=== PATIENT | male | born 1960 | race Hispanic/Latino ===

== ENCOUNTER 2017-03-08 10:20 | Inpatient (IN) ==
[2017-03-08 10:51] LABS: MANUAL DIFF NEEDED? NO
--- NOTE | 2017-03-08 10:52 | Diag Imaging Result Doc PS360 ---
EXAM: CHEST-PORTABLE HISTORY: AMS TECHNIQUE: Portable AP upright COMPARISON: 06/17/2016 FINDINGS: The lungs are well expanded. Heart is not enlarged. The vessels are not distended. No pneumonia. No pleural effusions identified. IMPRESSION: Negative chest. Electronically signed by Jason iHguera 03/08/2017 10:50 AM
[2017-03-08 10:59] LABS: BASO% 0.4 % (0.0-0.8); EOS# 0.03 X1000 (0.0-0.7); EOS% 1.1 % (0.0-10.0); HEMATOCRIT 38.4 % (42.0-52.0); HEMOGLOBIN 13.2 g/dL (14.0-18.0); LYMPH# 0.86 X1000 (1.2-3.4); LYMPH% 30.8 % (20.5-51.1); MCH 28.4 PG (27-31); MCHC 34.4 g/dL (33-37); MCV 82.6 FL (81-99); MONO# 0.33 X1000 (0.11-0.59); MONO% 11.8 % (1.7-9.3); MPV 11.1 FL (7.4-10.4); NEUT% 55.9 % (42.2-75.2); PLT 90 X1000 (130-400); RBC 4.65 XMIL (4.7-6.1)
[2017-03-08 11:02] LABS: INR 1.09; PROTIME 11.5 Seconds (9.2-11.7); PTT 33.4 Seconds (22.0-36.0)
[2017-03-08 11:13] LABS: AGAP 12; ALBUMIN 3.6 g/dL (3.5-5.0); ALKALINE PHOSPHATASE 93 U/L (32-122); BUN 12 mg/dL (8-22); CALCIUM 8.9 mg/dL (8.8-10.2); CHLORIDE 103 mmol/L (98-107); CK PROFILE 149 U/L (24-204); COSMO 276; GOT 31 U/L (10-34); GPT 12 U/L (10-44); POTASSIUM 4.1 mmol/L (3.5-5.1); SODIUM 138 mmol/L (136-145); TCO2 23 mmol/L (25-35); TOTAL BILIRUBIN 0.85 mg/dL (0.20-1.00); TOTAL PROTEIN 7.1 g/dL (6.3-8.3)
[2017-03-08 11:28] LABS: URINE CULTURE NEEDED? NO; URINE MICRO REVIEW NEEDED? NO; URINE SOURCE CLEAN CATCH
[2017-03-08 11:37] LABS: BILIRUBIN URINE NEGATIVE (NEGATIVE); BLOOD URINE NEGATIVE (NEGATIVE); COLOR YELLOW; GLUCOSE URINE NEGATIVE (NEGATIVE); LEUKOCYTES URINE NEGATIVE (NEGATIVE); NITRITE URINE NEGATIVE (NEGATIVE); PH URINE 5.5; PROTEIN URINE TRACE mg/dL (NEGATIVE); SP GRAVITY URINE 1.021; TURBIDITY URINE CLEAR (CLEAR); UROBILINOGEN URINE NORMAL (NORMAL)
[2017-03-08 11:38] LABS: UR EPITHELIAL CELLS <10 /HPF (<10); URINE BACTERIA NEGATIVE /HPF; URINE RBC <10 /HPF (<10); URINE WBC <10 /HPF (<10)
--- NOTE | 2017-03-08 11:44 | EKG Report ---
Test Performed on : 03/08/2017 11:10:35 AM Test Reason : AMS Blood Pressure : / mmHG Vent. Rate : 088 BPM Atrial Rate : 088 BPM P-R Int : 166 ms QRS Dur : 086 ms QT Int : 378 ms P-R-T Axes : 022 -05 -17 degrees QTc Int : 457 ms Normal sinus rhythm. Nonspecific T wave abnormality Abnormal ECG When compared with ECG of 01-SEP-2016 07:09, QT has shortened Unconfirmed Result
[2017-03-08 11:45] LABS: UR AMPHETAMINES QUAL NONE DETECTED (NONE DETECT); UR BARBITUATES QUAL NONE DETECTED (NONE DETECT); UR BENZODIAZEPIN QUAL NONE DETECTED (NONE DETECT); UR CANNABINOIDS QUAL NONE DETECTED (NONE DETECT); UR COCAINE QUAL NONE DETECTED (NONE DETECT); UR METHADONE QUAL NONE DETECTED (NONE DETECT); UR OPIATES QUAL NONE DETECTED (NONE DETECT); UR OXYCODONE QUAL NONE DETECTED (NONE DETECT); UR PCP QUAL NONE DETECTED (NONE DETECT)
--- NOTE | 2017-03-08 11:55 | Diag Imaging Result Doc PS360 ---
EXAM: HEAD W/O CONTRAST HISTORY: AMS TECHNIQUE: CT of the head without contrast COMMENT: there is some hyperostosis of the calvarium. There is no evidence of mass effect, bleed, hydrocephalus or abnormal extra-axial fluid collection. There has been no significant change in the appearance of the brain since 08/31/2016. There is mucosal thickening in the left maxillary sinus which was not present at the time the previous study. IMPRESSION: Left maxillary sinusitis. No evidence of acute intracranial disease. Electronically signed by Jarrell Maria 03/08/2017 11:53 AM
[2017-03-08] MEDS ORDERED: KEPPRA PO ONE (12:19)
[2017-03-08] MEDS ORDERED: VALIUM ONE (12:45)
[2017-03-08] MEDS ORDERED: VALIUM IV ONE (12:51)
--- NOTE | 2017-03-08 13:05 | PROVIDER DOCUMENTATION ---
This chart was entered by Masood Bowser Scribe, acting as scribe for Sandy Eng MD. HPI-Syncope/Dizziness - General Stated Complaint: SYNCOPE, UNRESPONSIVE Time Seen by Provider: 03/08/17 10:25 Source: patient, EMS Allergies/Adverse Reactions: Patient Allergies Allergy/AdvReac Type Severity Reaction Status Date / Time No Known Allergies Allergy Verified 08/31/16 13:01 Home Medications: Home Medication List Medication Instructions Recorded Confirmed Last Taken Type Levetiracetam [Keppra] 750 mg PO BID 09/14/16 03/08/17 03/08/17 07:00 History YES - History of Present Illness-Syncope/Dizzy Nature of Presenting Problem: 56 yo M presents to the ER via EMS with complaint of syncopal episode prior to arrival. EMS states he passed out while at work. PT has as hx of seizures and syncopal episodes. Ptwas confused when he woke up but was A&O x 2. The episode was not witnessed. Denies SOB, CP, headache, and dizziness. PT states his last seizure was 1 year ago. Prior Episodes: reports: single episode today, recent history Onset/Duration: reports: just prior to arrival Timing: reports: gone now Loss of Consciousness: unsure Location of injury. (If syncope resulted in an injury.): reports: none Current Symptoms: reports: none/feels normal Review of Systems - Adult - REVIEW OF SYSTEMS - ADULT Constitutional: denies: chills, fever Cardiovascular: denies: chest pain, palpitations Respiratory: denies: cough, shortness of breath Gastrointestinal: denies: abdominal pain, nausea, vomiting Neurological: reports: see HPI, syncope All Other Systems: Reviewed and Negative Past History - Adult - PAST MEDICAL HISTORY-ADULT Review of Records: reports: Old Records Reviewed, Nursing Assessment Review, Medications Reviewed, Social history reviewed & non-contributory. Major Childhood Illnesses: reports: denies history Cardiovascular: reports: denies history Respiratory: reports: denies history Gastrointestinal: reports: denies history Obstetrical/Gynecological: reports: denies history Genitourinary: reports: denies history Musculoskeletal: reports: arthritis Neurological: reports: denies history Psychiatric: reports: denies history Endocrine/Immune: reports: denies history Other Conditions: reports: denies history - PRIOR SURGERIES/PROCEDURES Surgical/Procedure History: reports: appendectomy, hernia repair, other (Knee/ Nose Scope) - PRIOR HOSPITALIZATIONS Prior Hospitalizations: reports: none - IMMUNIZATION STATUS Childhood Immunizations: See Nurse Assessment Flu Vaccine: See Nurse Assessment - FAMILY HISTORY Family History: reviewed, not pertinent Physical Exam-General - PHYSICAL EXAM-ADULT Initial Vital Signs Reviewed: Yes - CONSTITUTIONAL General Appearance: alert, no apparent distress, lethargic, slow to respond - HEAD, EARS, NOSE, MOUTH & THROAT HENMT: normocephalic/atraumatic, moist mucous membranes - RESPIRATORY Respiratory: chest non-tender, lungs clear, normal breath sounds - CARDIOVASCULAR Cardiovascular: normal peripheral pulses, regular rate, rhythm - GASTROINTESTINAL (ABDOMEN) Abdominal Exam: normal bowel sounds, non tender, soft - MUSCULOSKELETAL Extremity: normal range of motion, non-tender, normal gait - SKIN Integumentary: normal color, normal turgor - NEUROLOGIC Neurologic: sleep technician II-XII nml as tested, grossly normal, no motor/sensory deficits - PSYCHIATRIC Psych/Mental Status: normal thought content Progress - PLAN OF CARE/RESULTS Progress/Plan/Lab Results: Vital Signs - 8 hr 03/08/17 10:41 Temperature 98.0 F Pulse Rate 100 H Respiratory Rate 18 Blood Pressure 154/105 O2 Sat by Pulse Oximetry 95 Laboratory Results - last 24 hr 03/08/17 03/08/17 03/08/17 10:40 10:40 10:40 WBC 2.79 L RBC 4.65 L Hgb 13.2 L Hct 38.4 L MCV 82.6 MCH 28.4 MCHC 34.4 RDW Std Deviation 15.9 H Plt Count 90 L MPV 11.1 H Immature Gran % (Auto) 0.0 Neut % (Auto) 55.9 Lymph % (Auto) 30.8 Crane % (Auto) 11.8 H Eos % (Auto) 1.1 Baso % (Auto) 0.4 Immature Gran # (Auto) 0.00 Neut # (Auto) 1.56 Lymph # (Auto) 0.86 L Crane # (Auto) 0.33 Eos # (Auto) 0.03 Baso # (Auto) 0.01 PT INR PTT (Actin FS) Sodium 138 Potassium 4.1 Chloride 103 Carbon Dioxide 23 L Anion Gap 12 BUN 12 Creatinine 0.8 Estimated GFR/1.73 m2 > 60 BUN/Creatinine Ratio 15 Glucose 111 H Calculated Osmolality 276 Calcium 8.9 Total Bilirubin 0.85 AST 31 ALT 12 Alkaline Phosphatase 93 Creatine Kinase 149 Troponin T Total Protein 7.1 Albumin 3.6 Globulin 3.5 Albumin/Globulin Ratio 1.0 Plasma Lactate Urine Source Urine Color Urine Turbidity Urine pH Ur Specific [place] Urine Protein Ur Glucose (Stick) Ur Ketones (Stick) Urine Blood Urine Nitrite Urine Bilirubin Urobilinogen Dipstick Urine Leukocytes Urine WBC (Auto) Urine RBC (Auto) U Epithel Cells (Auto) Urine Bacteria (Auto) Urine Opiates Screen Ur Oxycodone Screen Ur Methadone, Qual Ur Barbiturates Screen Ur Phencyclidine Scrn Ur Amphetamines Screen U Benzodiazepines Scrn Urine Cocaine Screen U Cannabinoids Screen Plasma/Serum Ethyl Alc 03/08/17 03/08/17 03/08/17 10:40 10:40 11:15 WBC RBC Hgb Hct MCV MCH MCHC RDW Std Deviation Plt Count MPV Immature Gran % (Auto) Neut % (Auto) Lymph % (Auto) Crane % (Auto) Eos % (Auto) Baso % (Auto) Immature Gran # (Auto) Neut # (Auto) Lymph # (Auto) Crane # (Auto) Eos # (Auto) Baso # (Auto) PT 11.5 INR 1.09 PTT (Actin FS) 33.4 Sodium Potassium Chloride Carbon Dioxide Anion Gap BUN Creatinine Estimated GFR/1.73 m2 BUN/Creatinine Ratio Glucose Calculated Osmolality Calcium Total Bilirubin AST ALT Alkaline Phosphatase Creatine Kinase Troponin T < 0.010 Total Protein Albumin Globulin Albumin/Globulin Ratio Plasma Lactate Urine Source CLEAN CATCH Urine Color YELLOW Urine Turbidity CLEAR Urine pH 5.5 Ur Specific [place] 1.021 Urine Protein TRACE A Ur Glucose (Stick) NEGATIVE Ur Ketones (Stick) NEGATIVE Urine Blood NEGATIVE Urine Nitrite NEGATIVE Urine Bilirubin NEGATIVE Urobilinogen Dipstick NORMAL Urine Leukocytes NEGATIVE Urine WBC (Auto) <10 Urine RBC (Auto) <10 U Epithel Cells (Auto) <10 Urine Bacteria (Auto) NEGATIVE Urine Opiates Screen Ur Oxycodone Screen Ur Methadone, Qual Ur Barbiturates Screen Ur Phencyclidine Scrn Ur Amphetamines Screen U Benzodiazepines Scrn Urine Cocaine Screen U Cannabinoids Screen Plasma/Serum Ethyl Alc 03/08/17 03/08/17 11:15 11:26 WBC RBC Hgb Hct MCV MCH MCHC RDW Std Deviation Plt Count MPV Immature Gran % (Auto) Neut % (Auto) Lymph % (Auto) Crane % (Auto) Eos % (Auto) Baso % (Auto) Immature Gran # (Auto) Neut # (Auto) Lymph # (Auto) Crane # (Auto) Eos # (Auto) Baso # (Auto) PT INR PTT (Actin FS) Sodium Potassium Chloride Carbon Dioxide Anion Gap BUN Creatinine Estimated GFR/1.73 m2 BUN/Creatinine Ratio Glucose Calculated Osmolality Calcium Total Bilirubin AST ALT Alkaline Phosphatase Creatine Kinase Troponin T Total Protein Albumin Globulin Albumin/Globulin Ratio Plasma Lactate 2.0 Urine Source Urine Color Urine Turbidity Urine pH Ur Specific [place] Urine Protein Ur Glucose (Stick) Ur Ketones (Stick) Urine Blood Urine Nitrite Urine Bilirubin Urobilinogen Dipstick Urine Leukocytes Urine WBC (Auto) Urine RBC (Auto) U Epithel Cells (Auto) Urine Bacteria (Auto) Urine Opiates Screen NONE DETECTED Ur Oxycodone Screen NONE DETECTED Ur Methadone, Qual NONE DETECTED Ur Barbiturates Screen NONE DETECTED Ur Phencyclidine Scrn NONE DETECTED Ur Amphetamines Screen NONE DETECTED U Benzodiazepines Scrn NONE DETECTED Urine Cocaine Screen NONE DETECTED U Cannabinoids Screen NONE DETECTED Plasma/Serum Ethyl Alc Orders Category Date Time Status Cardiac Monitoring DIRECTED Care 03/08/17 10:33 Active Finger Stick Blood Sugar (ED) DIRECTED Care 03/08/17 10:33 Active Oxygen Therapy- ED Nursing DIRECTED Care 03/08/17 10:33 Active Saline Loc NOW Care 03/08/17 10:33 Active CHEST-PORTABLE [RAD] Stat Exams 03/08/17 10:33 Completed HEAD W/O CONTRAST [CT] Stat Exams 03/08/17 10:34 Completed ALCOHOL BLOOD Stat Lab 03/08/17 10:40 Completed CBC WITH ELECTRONIC DIFF [HEME] Stat Lab 03/08/17 10:40 Completed CK PROFILE [SP CHEM] Stat Lab 03/08/17 10:40 Completed COMPREHENSIVE METABOLIC PANEL [CHEM] Stat Lab 03/08/17 10:40 Completed KEPPRA [GLEZ] Stat Lab 03/08/17 12:19 Ordered LACTATE, PLASMA [CHEM] Stat Lab 03/08/17 11:26 Completed PROTIME WITH INR [COAG] Stat Lab 03/08/17 10:40 Completed PTT [COAG] Stat Lab 03/08/17 10:40 Completed TROPONIN T Stat Lab 03/08/17 10:40 Completed URINALYSIS W/POSS RFLX CULT-1 [URINALYSIS] Stat Lab 03/08/17 11:15 Completed URINE DRUG SCREEN Stat Lab 03/08/17 11:15 Completed Diazepam [Valium] Med 03/08/17 12:45 Discontinued 10 mg .ROUTE .STK-MED ONE Diazepam [Valium] Med 03/08/17 12:51 Discontinued 10 mg IV NOW ONE Levetiracetam [Keppra] Med 03/08/17 12:19 Discontinued 750 mg PO NOW ONE Pulse Oximetry Stat Oth 03/08/17 10:33 Active EKG [EKG] Stat Ther 03/08/17 10:33 Draft Result Diagrams: 03/08/17 10:40 03/08/17 10:40 - EKG 1 Time of EKG reading by physician:: 11:10 EKG Read and Signed by:: Sandy Eng EKG Interpretation (*Must complete 3 of following elements*): Abnormal Rate: 88 Rhythm: NSR QRS: normal UT Interval: normal Comments: nonspecific Twave abnormality - XRAY 1 XRAY Study: Chest Impression: See EMR Report - CT/MRI 1 CT Study: Head Impression: See EMR Report - CONSULTS/PCP/HOSPITALIST Notification #1 *Consult/PCP/Hospitalist*: Dr israel Time Discussed: 13:02 Consult Disposition: Admit Departure - Departure Date of Disposition Decision: 03/08/17 Time of Disposition Decision: 13:02 DIAGNOSIS: Seizure Syncope Qualifiers: Syncope type: unspecified Qualified Code(s): R55 - Syncope and collapse Altered mental status Qualifiers: Altered mental status type: unspecified Qualified Code(s): R41.82 - Altered mental status, unspecified Disposition: ADMITTED INPATIENT 09 Certified Medical Emergency: Emergent Condition: Fair Referrals and Follow-Ups: None,PCP [Primary Care Provider] - - Critical Care Note This patient required my direct & personal management of CC.: No Comments: A 56 y/o M who presented after syncopal episode, had another seizure episode in ED stabilized, after valium, confused, workup not impressive, will admit for further evalaution and observation This chart was documented by the indicated scribe, (Masood Bowser Scribe) and accurately reflects the services I performed and decisions made by me, Sandy Eng MD, as attested by the provider's signature.
[2017-03-08] MEDS ORDERED: ROCEPHIN 1 GM/NS 1 GM/50 ML IVPB IV SCH (13:15)
[2017-03-08 18:35] LABS: IRON SATURATION 19 %; TIBC 335 ug/dL; TOTAL IRON 63 ug/dL (53-167); UNBOUND IRON 272 ug/dL (112-346)
[2017-03-08 18:47] LABS: FREE T4 0.71 ng/dL (0.93-1.70)
--- NOTE | 2017-03-08 20:47 | CONSULTATION ---
DATE OF CONSULTATION: 03/08/2017 HISTORY OF PRESENT ILLNESS: Mr. Albarran is 66 years old and it sounds like he has had a few more seizures. History from the patient is that after I saw him in the office a week ago today, he continued taking levetiracetam twice a day until he ran out 2 days ago. He did not take any levetiracetam yesterday or early this morning. He was discovered down at work, but no unwitnessed definite seizure-like behavior. He was brought to the emergency room and had a witnessed generalized tonic-clonic seizure here. He had a typical postictal state, which resolved. He received lorazepam. He has had a dose of levetiracetam here. Lab does not show anything that would be typically associated with seizure or encephalopathy. He has been afebrile. Initial blood pressure was 154/105 with a heart rate 100. There is mild anemia. Review of previous records shows admission 6 months ago after a similar episode. EEG showed generalized epileptiform discharge. He was started on levetiracetam 500 mg b.i.d., dose increased to 750 mg b.i.d. at discharge. He continued seizure free and was tolerating that regimen. I saw him in the office last week and increased his levetiracetam dose to 1000 mg b.i.d. EEG today again shows prominent frequent bursts of repetitive sharp wave discharges. I do not see anything definitely focal. NEUROLOGIC EXAMINATION: On exam, Mr. Albarran is awake, alert, attentive. Speech is slightly dysarthric. There is evidence that he bit his tongue. Gag is intact. Visual naylor are full. Strength is equal in the limbs. Limb tone is symmetric. There is no meningismus. I did not test his gait. IMPRESSION: Generalized seizure. I encouraged him to take his seizure medicine as directed. Further plans will depend on his clinical course over the next few hours or so, but I expect he will be stable and ready for discharge soon. I will plan to follow him in the office as before. Thanks for asking me to see Mr. Albarran. cc: MD MIRNA Jon III
[2017-03-08] MEDS: KEPPRA PO SCH (20:55)
--- NOTE | 2017-03-09 01:02 | HISTORY AND PHYSICAL ---
CHIEF COMPLAINT: Seizure. HISTORY OF PRESENT ILLNESS: Mr. Albarran is a 56-year-old male with a history of a fairly new diagnosis of seizures, diagnosed in August of last year. At that time, he came to our facility, had advanced imaging done, all of which was negative. Dr. Diehl saw the patient, and he was placed on Keppra. He comes back today after apparently another seizure while at work. There is nobody at the bedside to assist with history, thus history is obtained per chart review. Apparently, the patient was at work and had a witnessed seizure or syncopal episode, and 911 was called. It is unknown how long the episode lasted, but when the patient did wake up, he was quite confused. Currently, he seems to be postictal, but no focal deficits are noted on exam. His head CT does not show anything acute. His laboratory data is largely unremarkable. He is now going to be admitted for further treatment and evaluation. PAST MEDICAL HISTORY: 1. Seizure disorder, on Keppra. 2. Morbid obesity. 3. Chronic right lower extremity venous stasis. 4. Apparent history of alcohol dependence, in sustained remission. PAST SURGICAL HISTORY: Hernia repair, nose surgery. SOCIAL HISTORY: Patient lives alone. He has no children. He works at [employer]. He reports 2 drinks of beer a night. He denies tobacco or drug use. FAMILY HISTORY: Unknown. REVIEW OF SYSTEMS: Really unable to obtain. ALLERGIES: No known drug allergies. HOME MEDICATIONS: Keppra 750 mg b.i.d. PHYSICAL EXAMINATION: VITAL SIGNS: Blood pressure is 162/83, heart rate 65, respiratory rate is 18, O2 saturation 99% on room air. Temperature is 98.6 degrees. GENERAL: This is a morbidly obese male, lying in the hospital bed in no acute distress, but somewhat lethargic and possibly postictal. NEUROLOGIC: Again, the patient is slightly confused and lethargic, but he follows commands without focal deficits. He does have some generalized weakness. Cranial nerves 2-12 are grossly intact. HEENT: Head atraumatic and normocephalic. His pupils are equal, round, reactive to light. Oral mucosa is moist. Trachea is midline. No JVD or carotid bruits. CHEST: Clear to auscultation bilaterally. CARDIOVASCULAR: Regular rate and rhythm. S1-S2 is noted. No murmurs. GASTROINTESTINAL: Soft, nondistended, nontender. Bowel sounds are positive. EXTREMITIES: Right lower extremity with 1+ edema and venous stasis noted. Left lower extremity without edema, clubbing, or cyanosis. Pulses palpable bilaterally. DIAGNOSTIC DATA: Head CT is negative for acute process. Chest x-ray is negative. EKG shows normal sinus rhythm, with nonspecific T-wave abnormalities. WBC 2.79, hemoglobin 13.2, hematocrit 38.4, platelet count is 90. INR 1.09. Sodium 138, potassium 4.1, chloride 103, CO2 23, anion gap 12, BUN 12, creatinine 0.8, glucose 111, bilirubin 0.85. LFTs within normal limits. Troponin and CKs are negative. UA is negative. Toxicology is negative. ASSESSMENT AND PLAN: 1. Syncope versus seizure: Patient will be admitted to the floor with telemetry. We will trend his cardiac enzymes. Check an EEG, continue his Keppra, check a Keppra level, and consult with Dr. Diehl. We will continue to monitor his neuro status closely. 2. History of seizures: As above. We will add p.r.n. benzodiazepines for any breakthrough seizures. 3. Pancytopenia: Unclear as to the etiology here. We will check thyroid function, full iron studies, and trend CBC. Likely, secondary to previous history of alcohol dependence. That is unclear. We will order appropriate labs and diagnostics, and continue to follow. 4. DVT prophylaxis will be provided with SCDs. Further recommendations to follow. Dictated by SUMA Martinez for Jessica Dennis MD cc: SUMA Martinez MD
[2017-03-09 04:53] LABS: HEMATOCRIT 39.4 % (42.0-52.0); HEMOGLOBIN 13.4 g/dL (14.0-18.0); MCV 82.4 FL (81-99); MPV 10.9 FL (7.4-10.4); RBC 4.78 XMIL (4.7-6.1)
[2017-03-09 05:06] LABS: HEMOGLOBIN A1C 5.1 % (4.8-6.0)
[2017-03-09 05:18] LABS: AGAP 11; BUN 7 mg/dL (8-22); CHLORIDE 103 mmol/L (98-107); COSMO 279; HDL 54 mg/dL (35-55); LDL 84 mg/dL; POTASSIUM 3.8 mmol/L (3.5-5.1); SODIUM 141 mmol/L (136-145); TCO2 27 mmol/L (25-35); TRIGLYCERIDES 68 mg/dL (39-160); VLDL 14 mg/dL
[2017-03-09 06:16] LABS: CK INDEX 0.4 (0.0-2.5); CK-MB 2.37 ng/mL (0.0-5.0)
[2017-03-09 07:35] VITALS: BP 151/81
[2017-03-09 08:19] LABS: CK INDEX 0.6 (0.0-2.5); CK-MB 2.9 ng/mL (0.0-5.0)
[2017-03-09] MEDS: KEPPRA PO SCH (08:21)
[2017-03-09] MEDS ORDERED: TYLENOL PO PRN (08:34)
--- NOTE | 2017-03-09 08:59 | PROGRESS NOTE ---
DATE: 03/09/2017 Mr. Albarran is awake, alert, attentive, appropriate, oriented. He reports no further seizure episodes since I saw him in the emergency room yesterday. Lab shows elevated CK consistent with recent seizure. Nothing else remarkable on the chemistry profile. His toxicology was all negative. He continues levetiracetam 750 mg p.o. b.i.d. I will make that 1000 mg b.i.d., as we had planned with office visit last week. I do not have any urgent suggestion from neurologic standpoint. From my standpoint, Mr. Albarran may be discharged when medically ready. Thanks for asking me to see him here. cc: MD MIRNA Jon III
[2017-03-09] MEDS ORDERED: KEPPRA XR PO SCH (09:00)
--- NOTE | 2017-03-09 14:52 | DISCHARGE SUMMARY ---
ADMISSION DATE: 03/08/2017 DISCHARGE DATE: 03/09/2017 CONSULTATIONS: Dr. Bjorn Diehl with Neurology. PERTINENT PROCEDURES: 1. Chest x-ray was negative. 2. Head CT showed left maxillary sinusitis. No evidence of acute intracranial disease. DISCHARGE DIAGNOSES: 1. Seizures disorder 2. Pancytopenia 3. Alcohol abuse in the past. HOSPITAL COURSE: Mr. Albarran is a 66-year-old male, known to our service for seizures and pancytopenia. The patient had recently seen Dr. Diehl in his office a week ago. He continue taking his Keppra twice a day until he ran out 2 days prior to his admission. He was discovered down at work but no witnessed definite seizure-like behavior. He was brought to the ED room where he did have witnessed generalized tonic-clonic seizure in the ED. He did have a typical postictal state which resolved. He did receive Ativan as well as a dose of Keppra. His CKs were consistent with seizure activity. The patient has been seizure-free since his episodes in the ED. He is encouraged to take his seizure medicine as directed as well as increase to 1000 b.i.d. from 500 b.i.d. He is now awake, alert, attentive, appropriate and he has been cleared for discharge by Neurology. Vital signs: Temperature is 98.2 degrees, heart rate 63, respirations 20, blood pressure 151/81, O2 is 99% on room air. DISCHARGE DIET: Healthy heart. DISCHARGE MEDICATIONS: Keppra 1000 mg p.o. b.i.d. FOLLOWUP: Mr. Albarran is being discharged home with self care. He will follow up with Dr. Diehl in 2 weeks. He will need to take all his seizure medications as prescribed. The patient can return to the ED for any worsening of symptoms. Dictated by SUMA Pederson for Jessica Dennis MD cc: Jessica Dennis MD [facility]
[2017-03-09] MEDS ORDERED: KEPPRA PO SCH (21:00)
--- NOTE | 2017-03-15 21:17 | EEG REPORT ---
DATE: 03/08/2017 REFERRING PHYSICIAN: Dr. Dennis. EEG #: [id number]. PATIENT APPOINTMENT COORDINATOR: Radha Montelongo. BACKGROUND INFORMATION: A digitally recorded EEG is obtained with one additional channel for EKG. HISTORY OF PRESENT ILLNESS: This is a 56-year-old male with a history of seizures the last one approximately 1 year ago. He had an unwitnessed syncopal event prior to arrival. Nurse states he appeared postictal upon arrival to ED. Had an episode of tonic clonic activity in the ED. An EEG is ordered to detect evidence of possible seizures. MEDICATION LIST: Keppra, diazepam. EEG FINDINGS: A moderately well-formed posterior dominant 9 hertz alpha rhythm is noted in the occipital regions. The background consists of mixed alpha and beta range frequencies. No focal slowing is seen. There are frequent 1-6 second bursts of atypical, generalized repetitive sharps, spikes, sharp wave and spike wave complexes noted throughout the study. There is no definite seizure activity. Hyperventilation and photic stimulation were not performed. No definite drowsiness patterns are noted. Stage II sleep is not seen. The EKG reveals regular R-R interval. IMPRESSION AND CLINICAL CORRELATION: This is an abnormal routine EEG due to frequent bursts of atypical epileptiform discharges noted above. This is consistent with a generalized epilepsy. Clinical correlation is advised. cc: MD Jessica Fisher MD [facility]
== END 2017-03-09 12:22 | disposition home or self-care (01) ==
LOC: SUATTDRO → ED 10:20 → 4N 14:25
PROVIDERS: ATTEND Internal Medicine

== ENCOUNTER 2017-04-19 03:53 | Inpatient (IN) ==
[2017-04-14 09:04] LABS: URINE MICRO REVIEW NEEDED? NO; URINE SOURCE CLEAN CATCH
[2017-04-14 09:11] LABS: MANUAL DIFF NEEDED? NO
[2017-04-14 09:36] LABS: BILIRUBIN URINE NEGATIVE (NEGATIVE); BLOOD URINE NEGATIVE (NEGATIVE); COLOR YELLOW; GLUCOSE URINE NEGATIVE (NEGATIVE); LEUKOCYTES URINE NEGATIVE (NEGATIVE); NITRITE URINE NEGATIVE (NEGATIVE); PROTEIN URINE TRACE mg/dL (NEGATIVE); SP GRAVITY URINE 1.025; TURBIDITY URINE CLEAR (CLEAR); UROBILINOGEN URINE NORMAL (NORMAL)
--- NOTE | 2017-04-14 09:38 | EKG Report ---
Test Performed on : 04/14/2017 08:51:26 AM Test Reason : PAT Blood Pressure : / mmHG Vent. Rate : 072 BPM Atrial Rate : 072 BPM P-R Int : 152 ms QRS Dur : 084 ms QT Int : 412 ms P-R-T Axes : 029 017 -08 degrees QTc Int : 451 ms Normal sinus rhythm. Normal ECG When compared with ECG of 08-MAR-2017 11:10, Nonspecific T wave abnormality, improved in Anterior leads Confirmed by Ulises Urrutia MD ([id number]) on 04/14/2017 12:49:44 PM
[2017-04-14 09:39] LABS: UR EPITHELIAL CELLS <10 /HPF (<10); URINE BACTERIA NEGATIVE /HPF; URINE RBC <10 /HPF (<10); URINE WBC <10 /HPF (<10)
[2017-04-14 09:46] LABS: BASO% 0.3 % (0.0-0.8); EOS# 0.09 X1000 (0.0-0.7); EOS% 2.7 % (0.0-10.0); HEMATOCRIT 43.2 % (42.0-52.0); HEMOGLOBIN 14.7 g/dL (14.0-18.0); INR 1.09; LYMPH# 1.15 X1000 (1.2-3.4); LYMPH% 35.1 % (20.5-51.1); MCH 29.2 PG (27-31); MCV 85.7 FL (81-99); MONO# 0.38 X1000 (0.11-0.59); MONO% 11.6 % (1.7-9.3); MPV 11.2 FL (7.4-10.4); NEUT% 50.3 % (42.2-75.2); PLT 98 X1000 (130-400); PROTIME 11.5 Seconds (9.2-11.7); PTT 36.6 Seconds (22.0-36.0); RBC 5.04 XMIL (4.7-6.1)
[2017-04-14 09:58] LABS: AGAP 13; BUN 14 mg/dL (8-22); CALCIUM 8.8 mg/dL (8.8-10.2); CHLORIDE 104 mmol/L (98-107); COSMO 284; POTASSIUM 4.6 mmol/L (3.5-5.1); SODIUM 142 mmol/L (136-145); TCO2 25 mmol/L (25-35)
[2017-04-19] MEDS ORDERED: LR 1,000 ML ONE (08:47)
[2017-04-19] MEDS ORDERED: PEPCID ONE (08:47)
[2017-04-19] MEDS ORDERED: REGLAN ONE (08:47)
[2017-04-19] MEDS ORDERED: COLACE ONE (08:48)
[2017-04-19] MEDS ORDERED: KEFZOL 2 GM/D5W 2 GM/50 ML IVPB ONE (08:48)
[2017-04-19] MEDS ORDERED: LYRICA ONE (08:49)
[2017-04-19] MEDS ORDERED: CELEBREX ONE (08:49)
[2017-04-19] MEDS ORDERED: DIPRIVAN 1% 500 MG/50 ML BOTTLE ONE (10:45)
[2017-04-19] MEDS ORDERED: TORADOL ONE (10:49)
[2017-04-19] MEDS ORDERED: VANCOMYCIN ONE (10:49)
[2017-04-19] MEDS ORDERED: SENSORCAINE 0.25%/EPI 1:200,000 ONE (10:49)
[2017-04-19] MEDS ORDERED: CYKLOKAPRON 1,000 MG/NS 1,000 MG/100 ML IVPB ONE ×2 (10:49→10:52)
[2017-04-19] MEDS ORDERED: DURAMORPH ONE (10:49)
[2017-04-19] MEDS ORDERED: SODIUM CHLORIDE 0.9% ONE (10:49)
[2017-04-19] MEDS ORDERED: EXPAREL 1.3% ONE (10:50)
[2017-04-19] MEDS ORDERED: NEOSPORIN G.U. IRRIGANT ONE (10:50)
[2017-04-19] MEDS ORDERED: FENTANYL ONE (11:33)
[2017-04-19] MEDS ORDERED: ROBINUL ONE (11:57)
[2017-04-19] MEDS ORDERED: DECADRON ONE (12:18)
[2017-04-19] MEDS ORDERED: ZOFRAN ONE (12:18)
[2017-04-19] MEDS ORDERED: OFIRMEV 1000 MG/ISOTONIC SOLN 1,000 MG/100 ML BOTTLE ONE (12:18)
[2017-04-19] MEDS ORDERED: DIPRIVAN 1% ONE ×2 (12:24→13:03)
[2017-04-19 12:33] LABS: URINE MICRO REVIEW NEEDED? NO; URINE SOURCE CATH
[2017-04-19 12:47] LABS: BILIRUBIN URINE NEGATIVE (NEGATIVE); BLOOD URINE NEGATIVE (NEGATIVE); COLOR YELLOW; GLUCOSE URINE NEGATIVE (NEGATIVE); LEUKOCYTES URINE NEGATIVE (NEGATIVE); NITRITE URINE NEGATIVE (NEGATIVE); PROTEIN URINE TRACE mg/dL (NEGATIVE); SP GRAVITY URINE 1.027; TURBIDITY URINE CLEAR (CLEAR); UROBILINOGEN URINE NORMAL (NORMAL)
[2017-04-19 12:49] LABS: UR EPITHELIAL CELLS <10 /HPF (<10); URINE BACTERIA NEGATIVE /HPF; URINE RBC <10 /HPF (<10); URINE WBC <10 /HPF (<10)
[2017-04-19] MEDS ORDERED: NS 2,000 ML ONE (13:58)
[2017-04-19] MEDS ORDERED: ZOFRAN IV PRN (14:45)
[2017-04-19] MEDS ORDERED: MORPHINE IV PRN (14:45)
[2017-04-19] MEDS ORDERED: AMBIEN PO PRN (14:45)
[2017-04-19] MEDS: TYLENOL PO SCH ×2 (16:47→20:59)
[2017-04-19] MEDS: ULTRAM PO SCH ×2 (16:48→21:00)
--- NOTE | 2017-04-19 17:02 | OPERATIVE NOTE ---
PROCEDURE DATE: 04/19/2017 PREOPERATIVE DIAGNOSIS: Left knee degenerative joint disease. POSTOPERATIVE DIAGNOSIS: Left knee degenerative joint disease. PROCEDURE: Left total knee arthroplasty using a [employer] size 10 femoral component, size 9 tibial base plate, a 16 mm articular insert, and a 38 mm patellar component. ANESTHESIA: Spinal. SURGEON: Dr. Muller. BRAIDING MACHINE TENDER: Fabiola Gary PA-C who was present throughout the case and was critical for preparing the bone ends for the implant of the total knee arthroplasty, assisting with implanting the total knee arthroplasty including cement removal and fascia and wound closure. SECOND BRAIDING MACHINE TENDER: Jez Gresham RN. COMPLICATIONS: None. BLOOD LOSS: Minimal. DRAINS: Hemovac x1. DESCRIPTION OF PROCEDURE: The patient brought to operative suite and placed in supine position. After successful administration of spinal anesthesia, a well-padded tourniquet was placed on left proximal thigh. The left lower extremity was prepped and draped in usual sterile fashion. A longitudinal incision was made beginning superior pole patella extended distally tibia tuberosity, dissected sharply through the skin and then full-thickness skin flaps were elevated medially and laterally. A medial arthrotomy was made with vastus snip. The medial capsule was elevated off medial tibial plateau. Prepatellar fat pad, ACL, PCL, medial meniscus, lateral meniscus were excised. A drill was entered in the center of distal femur. Intramedullary guide was placed. Distal cutting block was pinned in place distal cut made with oscillating saw. The femur was sized to a size 10, a size 10 guide was pinned in place and then the anterior cuts, chamfer cuts and posterior condylar cuts were made with the oscillating saw. Marginal osteophytes removed with rongeur. Box cutting block was pinned in place. Box cut was made with box osteotome and oscillating saw. Posterior condyle osteophytes removed with curved osteotome and rongeur. Attention was then directed to tibia. A drill was entered in the center of the tibia. Intramedullary guide was placed. Alignment was checked with drop maryam referencing off the anterior cortex of tibia and the second ray of the foot and taking 4 mm off the low side the tibia which in this case was medially. The tibial cutting block was pinned in place. The articular surface tibial plateau was removed with oscillating saw. The sclerotic bone medially was drilled with a pin and then osteophytes medially were removed with a rongeur. Was found to be tight medially in flexion and extension and therefore a medial release was performed. Once this was completed, was balanced in flexion and extension at 16 mm. The tibia sized to a size 9, a size 9 guide was used for the fin punch. The tibial trial, femoral trial and 60 mm articular insert placed, taken through range of motion, found to have excellent alignment, balancing, range of motion. Attention then directed the patella, 9 mm of articular surface patella removed with oscillating saw. Patella sized to size 38. A size 38 guide was used to drill peg holes. The lateral facet was chamfered 30-45 degrees. Patella trial was placed, taken through range of motion, found to have excellent patella tracking. All trials were then removed. The knee was copiously irrigated and dried being certain all bone debris removed, the tibial component, femoral component and patellar component cemented into place, excess cement being removed with a [place]. Once the cement had hardened excess cement was again removed with osteotome, knee was again copiously irrigated and dried being sure all bone and cement were removed. The trial articular insert was removed. The knee was copiously infiltrated with Exparel including the posterior capsule, anterior capsule, anterior musculature, subcutaneous tissue and the medial and lateral collateral ligaments, the definitive 16 mm articular insert was locked into place. A drain was placed exiting superolaterally and buried in the lateral gutter. Knee was again copiously irrigated and dried. The knee was again taken through range of motion found to have excellent alignment, balancing, range of motion, patellar tracking. The medial arthrotomy was closed with running 0 V-Loc suture. The skin edge approximated with 2-0 Vicryl. Skin was closed with Prineo. Sterile dressing was applied. The patient tolerated the procedure well without complication. At the end the procedure, all counts correct x2. The patient was transferred to recovery room in stable condition. cc: Romario Muller MD
[2017-04-19] MEDS: KEFZOL 2 GM/D5W 2 GM/50 ML IVPB IV SCH (19:09)
[2017-04-19] MEDS: NS 1,000 ML IV SCH (20:59)
[2017-04-19] MEDS: LYRICA PO SCH (20:59)
[2017-04-19] MEDS: CELEBREX PO SCH (20:59)
[2017-04-19] MEDS: PERIDEX MT SCH (21:00)
[2017-04-19] MEDS: COLACE PO SCH (21:00)
[2017-04-19] MEDS: KEPPRA PO SCH (21:00)
[2017-04-20] MEDS: KEFZOL 2 GM/D5W 2 GM/50 ML IVPB IV SCH (03:07)
[2017-04-20] MEDS: TYLENOL PO SCH ×4 (03:08→21:35)
[2017-04-20] MEDS: ULTRAM PO SCH ×4 (03:08→21:34)
[2017-04-20] MEDS: NS 1,000 ML IV SCH (03:08)
[2017-04-20 05:34] LABS: HEMATOCRIT 34.1 % (42.0-52.0); HEMOGLOBIN 11.6 g/dL (14.0-18.0)
[2017-04-20 05:49] LABS: AGAP 9; BUN 19 mg/dL (8-22); CALCIUM 8.4 mg/dL (8.8-10.2); CHLORIDE 105 mmol/L (98-107); COSMO 280; POTASSIUM 4.5 mmol/L (3.5-5.1); SODIUM 138 mmol/L (136-145); TCO2 24 mmol/L (25-35)
[2017-04-20] MEDS: XARELTO PO SCH (05:49)
[2017-04-20] MEDS: OXY IR PO PRN (08:20)
[2017-04-20] MEDS: COLACE PO SCH ×2 (08:21→21:35)
[2017-04-20] MEDS: KEPPRA PO SCH ×2 (08:21→21:34)
[2017-04-20] MEDS: CELEBREX PO SCH ×2 (08:21→21:34)
[2017-04-20] MEDS: PERIDEX MT SCH ×2 (08:21→21:34)
[2017-04-20] MEDS: PEPCID PO SCH (08:21)
[2017-04-20] MEDS: LYRICA PO SCH ×2 (08:22→21:35)
[2017-04-20] MEDS ORDERED: DECADRON IV ONE (09:00)
--- NOTE | 2017-04-20 11:28 | PROGRESS NOTE ---
DATE: 04/20/2017 SUBJECTIVE: Mr. Albarran is a 56-year-old male, who is postoperative day 1 from a left total knee arthroplasty. He states he is doing well and he has no new complaints. OBJECTIVE: General: He is a well developed, well nourished male. He is alert, oriented, and cooperative with examination. He is in no acute distress. Vital Signs: His vital signs are stable. He is afebrile. His hemoglobin is 11.6 and his hematocrit is 34.1. He had 20 mL red drainage from his Hemovac. Extremities: He was ambulating well with physical therapy. Yesterday, he walked 80 feet. His wound is clean, dry, intact without sign of infection. His calf is soft and his left leg is neurovascularly intact. ASSESSMENT: Postoperative day 1 from a left total knee arthroplasty. PLAN: We will have him continue working with physical therapy, and we will have him transferred to rehab later this week. Dictated by ERNESTINA Del Rio for Romario Muller MD cc: ERNESTINA Del Rio MD
[2017-04-21] MEDS: MILK OF MAGNESIA PO PRN ×2 (02:42→17:40)
[2017-04-21] MEDS: ULTRAM PO SCH ×4 (02:42→20:24)
[2017-04-21] MEDS: TYLENOL PO SCH ×4 (02:42→20:24)
[2017-04-21 05:40] LABS: HEMATOCRIT 30.2 % (42.0-52.0); HEMOGLOBIN 10.1 g/dL (14.0-18.0)
[2017-04-21] MEDS: XARELTO PO SCH (06:27)
[2017-04-21] MEDS: CELEBREX PO SCH ×2 (09:56→20:24)
[2017-04-21] MEDS: PEPCID PO SCH (09:57)
[2017-04-21] MEDS: LYRICA PO SCH ×2 (09:57→20:25)
[2017-04-21] MEDS: COLACE PO SCH ×2 (09:58→20:25)
[2017-04-21] MEDS: KEPPRA PO SCH ×2 (09:58→20:25)
[2017-04-21] MEDS: PERIDEX MT SCH ×2 (09:59→20:23)
--- NOTE | 2017-04-21 14:15 | PROGRESS NOTE ---
DATE: 04/21/2017 SUBJECTIVE: Tylor Albarran is a 56-year-old male, who is postoperative day 2 from a left total knee arthroplasty. He is doing well as far as walking. He is having some bleeding from his knee wound. OBJECTIVE: He is a well-developed, well-nourished male. He is alert, oriented, and cooperative with exam. He has Steri-Strips across his knee that appears to be holding it intact. There is minimal bleeding at this time. Vital signs are stable. He is afebrile. He has walked over 250 feet. LABORATORY DATA: His hematocrit is 30.2%. His hemoglobin is 10.1. ASSESSMENT: Stable left total knee arthroplasty. PLAN: We put a pressure dressing on it today. We will discontinue his Xarelto due to excess bleeding from his wound. He will probably go to [facility] rehab tomorrow. cc: Romario Muller MD
[2017-04-22] MEDS: ULTRAM PO SCH ×4 (04:23→19:46)
[2017-04-22] MEDS: TYLENOL PO SCH ×4 (04:23→19:45)
[2017-04-22 05:37] LABS: HEMOGLOBIN 9.3 g/dL (14.0-18.0)
[2017-04-22] MEDS: PERIDEX MT SCH ×3 (09:19→22:49)
[2017-04-22] MEDS: KEPPRA PO SCH ×3 (09:20→22:49)
[2017-04-22] MEDS: PEPCID PO SCH (09:20)
[2017-04-22] MEDS: CELEBREX PO SCH ×3 (09:20→22:49)
[2017-04-22] MEDS: COLACE PO SCH ×3 (09:20→22:49)
[2017-04-22] MEDS: LYRICA PO SCH ×3 (09:21→22:49)
--- NOTE | 2017-04-22 16:19 | DISCHARGE SUMMARY ---
ADMISSION DATE: 04/19/2017 DISCHARGE DATE: 04/22/2017 DISCHARGE DIAGNOSIS: Left knee degenerative joint disease status post left total knee arthroplasty. DISCHARGE MEDICATIONS: See discharge medication list. DISPOSITION: The patient is discharged to rehabilitation. DISCHARGE INSTRUCTIONS: Instructions for total knee arthroplasty protocol. Instructed to return to see Dr. Muller next . HOSPITAL COURSE: On the day of admission, patient underwent a left total knee arthroplasty. His postoperative course was unremarkable. At discharge, he is afebrile, tolerating a regular diet, ambulating well with Physical Therapy. Yesterday he walked 500 feet. Hemoglobin is 9.3 and his hematocrit is 28.0. His wound is clean, dry, intact without sign of infection. His calf is soft. He is discharged to rehabilitation in stable condition with instructions to follow up as described above. Dictated by ERNESTINA Del Rio for Romario Muller MD cc: ERNESTINA Del Rio MD
[2017-04-23] MEDS: TYLENOL PO SCH ×4 (02:21→21:49)
[2017-04-23] MEDS: ULTRAM PO SCH ×4 (02:21→21:50)
[2017-04-23] MEDS: KEPPRA PO SCH ×2 (08:42→21:50)
[2017-04-23] MEDS: PEPCID PO SCH (08:42)
[2017-04-23] MEDS: LYRICA PO SCH ×2 (08:43→21:50)
[2017-04-23] MEDS: COLACE PO SCH ×2 (08:43→21:49)
[2017-04-23] MEDS: PERIDEX MT SCH ×2 (08:43→21:50)
[2017-04-23] MEDS: CELEBREX PO SCH ×2 (08:43→21:49)
[2017-04-24] MEDS: ULTRAM PO SCH ×4 (01:59→21:03)
[2017-04-24] MEDS: TYLENOL PO SCH ×4 (01:59→21:03)
[2017-04-24] MEDS: COLACE PO SCH ×2 (08:11→21:03)
[2017-04-24] MEDS: CELEBREX PO SCH ×2 (08:11→21:04)
[2017-04-24] MEDS: KEPPRA PO SCH ×2 (08:11→21:03)
[2017-04-24] MEDS: PEPCID PO SCH (08:11)
[2017-04-24] MEDS: LYRICA PO SCH ×2 (08:11→21:03)
[2017-04-24] MEDS: PERIDEX MT SCH ×2 (08:11→21:03)
[2017-04-25] MEDS: TYLENOL PO SCH ×4 (02:03→20:05)
[2017-04-25] MEDS: ULTRAM PO SCH ×4 (02:03→20:06)
[2017-04-25] MEDS: KEPPRA PO SCH ×2 (08:19→20:05)
[2017-04-25] MEDS: PEPCID PO SCH (08:19)
[2017-04-25] MEDS: LYRICA PO SCH ×2 (08:19→20:05)
[2017-04-25] MEDS: CELEBREX PO SCH ×2 (08:20→20:05)
[2017-04-25] MEDS: PERIDEX MT SCH ×2 (08:20→20:05)
[2017-04-25] MEDS: COLACE PO SCH ×2 (08:20→20:05)
--- NOTE | 2017-04-25 09:49 | PROGRESS NOTE ---
DATE: 04/25/2017 SUBJECTIVE: Tylor Albarran is a 56-year-old male who is postoperative day 6 from a left total knee arthroplasty. He was planning on going to [facility]. Unfortunately, he has not been cleared by his insurance yet. OBJECTIVE: He is a well-developed, well-nourished male. He is alert, oriented, and cooperative with the exam. His wound is not draining, and is clean, dry, and intact without sign of infection. His leg is neurovascularly intact. His last hematocrit was 28%. ASSESSMENT: Stable left total knee arthroplasty. PLAN: He will likely go to rehab or home tomorrow, depending upon the results of his insurance assessment. cc: Romario Muller MD
[2017-04-26] MEDS: ULTRAM PO SCH ×2 (01:45→09:57)
[2017-04-26] MEDS: TYLENOL PO SCH ×2 (01:46→09:58)
[2017-04-26] MEDS: LYRICA PO SCH (09:57)
[2017-04-26] MEDS: COLACE PO SCH (09:58)
[2017-04-26] MEDS: PEPCID PO SCH (09:58)
[2017-04-26] MEDS: KEPPRA PO SCH (09:58)
[2017-04-26] MEDS: CELEBREX PO SCH (09:59)
[2017-04-26] MEDS: OXY IR PO PRN (10:01)
[2017-04-26] MEDS: PERIDEX MT SCH (10:02)
[2017-04-26 12:09] VITALS: BP 134/64
--- NOTE | 2017-04-27 06:20 | DISCHARGE SUMMARY ---
ADMISSION DATE: 04/19/2017 DISCHARGE DATE: 04/26/2017 DISCHARGE DIAGNOSIS: Left knee degenerative joint disease status post left total knee arthroplasty. DISCHARGE MEDICATIONS: See discharge medication list. DISPOSITION: The patient is discharged home with home health. DISCHARGE INSTRUCTIONS: Instructions for total knee arthroplasty protocol and instructed to return to see Dr. Muller next . HOSPITAL COURSE: On the day of admission, patient underwent a left total knee arthroplasty. Postoperative course was unremarkable. At discharge, he is afebrile. Tolerating regular diet, ambulating well with physical therapy. His wound is clean, dry, and intact without sign of infection. His calf is soft. He is discharged home with home health in stable condition with instructions to follow up as described above. Dictated by ERNESTINA Del Rio for Romario Muller MD cc: ERNESTINA Del Rio MD
== END 2017-04-26 17:06 | disposition home health service (06) ==
LOC: SURHOLD 03:53 → 4N 13:27
PROVIDERS: ADMIT Orthopaedic Surgery; ATTEND Orthopaedic Surgery

== ENCOUNTER 2017-06-28 04:26 | Inpatient (IN) ==
[2017-06-23 10:01] LABS: MANUAL DIFF NEEDED? NO; URINE MICRO REVIEW NEEDED? NO; URINE SOURCE CLEAN CATCH
[2017-06-23 10:09] LABS: BILIRUBIN URINE NEGATIVE (NEGATIVE); BLOOD URINE NEGATIVE (NEGATIVE); COLOR YELLOW; GLUCOSE URINE NEGATIVE (NEGATIVE); LEUKOCYTES URINE NEGATIVE (NEGATIVE); NITRITE URINE NEGATIVE (NEGATIVE); PH URINE 5.5; PROTEIN URINE NEGATIVE (NEGATIVE); SP GRAVITY URINE 1.021; TURBIDITY URINE CLEAR (CLEAR); UROBILINOGEN URINE NORMAL (NORMAL)
[2017-06-23 10:10] LABS: UR EPITHELIAL CELLS <10 /HPF (<10); URINE BACTERIA NEGATIVE /HPF; URINE RBC <10 /HPF (<10); URINE WBC <10 /HPF (<10)
[2017-06-23 10:21] LABS: INR 1.06; PROTIME 11.2 Seconds (9.2-11.7); PTT 33.9 Seconds (22.0-36.0)
[2017-06-23 10:29] LABS: EOS# 0.06 X1000 (0.0-0.7); EOS% 1.8 % (0.0-10.0); HEMATOCRIT 42.7 % (42.0-52.0); HEMOGLOBIN 14.3 g/dL (14.0-18.0); LYMPH% 35.1 % (20.5-51.1); MCH 29.4 PG (27-31); MCHC 33.5 g/dL (33-37); MCV 87.7 FL (81-99); MONO# 0.34 X1000 (0.11-0.59); MONO% 9.9 % (1.7-9.3); MPV 11.3 FL (7.4-10.4); NEUT% 53.2 % (42.2-75.2); PLT 99 X1000 (130-400); RBC 4.87 XMIL (4.7-6.1)
[2017-06-23 10:43] LABS: AGAP 11; BUN 9 mg/dL (8-22); CALCIUM 9.5 mg/dL (8.8-10.2); CHLORIDE 106 mmol/L (98-107); COSMO 286; POTASSIUM 4.1 mmol/L (3.5-5.1); SODIUM 144 mmol/L (136-145); TCO2 27 mmol/L (25-35)
[2017-06-28] MEDS ORDERED: CELEBREX ONE (06:48)
[2017-06-28] MEDS ORDERED: PEPCID ONE (06:48)
[2017-06-28] MEDS ORDERED: COLACE ONE (06:48)
[2017-06-28] MEDS ORDERED: KEFZOL 2 GM/D5W 2 GM/50 ML IVPB ONE (06:48)
[2017-06-28] MEDS ORDERED: REGLAN ONE (06:48)
[2017-06-28] MEDS ORDERED: LYRICA ONE (06:48)
[2017-06-28] MEDS ORDERED: LR 1,000 ML ONE (06:48)
[2017-06-28] MEDS ORDERED: TORADOL ONE (08:49)
[2017-06-28] MEDS ORDERED: VERSED ONE (08:49)
[2017-06-28] MEDS ORDERED: DURAMORPH ONE (08:49)
[2017-06-28] MEDS ORDERED: SODIUM CHLORIDE 0.9% ONE (08:49)
[2017-06-28] MEDS ORDERED: FENTANYL ONE (08:50)
[2017-06-28] MEDS ORDERED: EXPAREL 1.3% ONE (08:50)
[2017-06-28] MEDS ORDERED: DIPRIVAN 1% ONE (08:50)
[2017-06-28] MEDS ORDERED: NEOSPORIN G.U. IRRIGANT ONE (08:51)
[2017-06-28] MEDS ORDERED: MARCAINE 0.25% PF ONE (08:53)
[2017-06-28] MEDS ORDERED: CYKLOKAPRON 1,000 MG/NS 2,000 MG/200 ML IVPB ONE (08:53)
[2017-06-28] MEDS ORDERED: VANCOMYCIN ONE (09:29)
[2017-06-28] MEDS ORDERED: DEMEROL ONE ×2 (10:06→10:48)
[2017-06-28] MEDS ORDERED: OFIRMEV 1000 MG/ISOTONIC SOLN 1,000 MG/100 ML BOTTLE ONE (10:32)
[2017-06-28] MEDS ORDERED: ZOFRAN ONE (10:32)
[2017-06-28] MEDS ORDERED: DECADRON ONE (10:32)
[2017-06-28 10:51] LABS: URINE CULTURE NEEDED? NO; URINE MICRO REVIEW NEEDED? NO; URINE SOURCE CATH
[2017-06-28 10:54] LABS: BILIRUBIN URINE NEGATIVE (NEGATIVE); BLOOD URINE NEGATIVE (NEGATIVE); COLOR YELLOW; GLUCOSE URINE NEGATIVE (NEGATIVE); LEUKOCYTES URINE NEGATIVE (NEGATIVE); NITRITE URINE NEGATIVE (NEGATIVE); PH URINE 5.5; PROTEIN URINE NEGATIVE (NEGATIVE); SP GRAVITY URINE 1.023; TURBIDITY URINE CLEAR (CLEAR); UROBILINOGEN URINE NORMAL (NORMAL)
[2017-06-28 10:55] LABS: UR EPITHELIAL CELLS <10 /HPF (<10); URINE BACTERIA NEGATIVE /HPF; URINE RBC <10 /HPF (<10); URINE WBC <10 /HPF (<10)
[2017-06-28] MEDS ORDERED: CYKLOKAPRON 1,000 MG/NS 1,000 MG/100 ML IVPB ONE (10:57)
[2017-06-28] MEDS ORDERED: NS 1,000 ML ONE (12:29)
[2017-06-28] MEDS ORDERED: OXY IR PO PRN (12:38)
[2017-06-28] MEDS ORDERED: MORPHINE IV PRN (12:38)
[2017-06-28] MEDS ORDERED: MILK OF MAGNESIA PO PRN (12:39)
[2017-06-28] MEDS ORDERED: ZOFRAN IV PRN (12:39)
[2017-06-28] MEDS ORDERED: AMBIEN PO PRN (12:39)
[2017-06-28] MEDS: ULTRAM PO SCH ×2 (14:07→18:29)
[2017-06-28] MEDS: NS 1,000 ML IV SCH (14:09)
--- NOTE | 2017-06-28 15:37 | OPERATIVE NOTE ---
PROCEDURE DATE: 06/28/2017 PREOPERATIVE DIAGNOSIS: Right knee degenerative joint disease. POSTOPERATIVE DIAGNOSIS: Right knee degenerative joint disease. PROCEDURE: Right total knee arthroplasty using [facility] size 10 femoral component, size 9 tibial base plate, a 14 mm articular insert, and 35 mm patellar component. ANESTHESIA: Spinal. SURGEON: Romario Muller MD DRIVER STARTING GATE: Fabiola Gary PA-C, who was present throughout the case and whose assistance was critical for exposure, preparation of the bone for implantation, assistance with implantation of the implants and wound closure. Her assistance greatly reduced the operative time as well as anesthesia time and improved the efficiency of the case. SECOND DRIVER STARTING GATE: Jez Gresham RN COMPLICATIONS: None. BLOOD LOSS: Minimal. DRAINS: Hemovac x1. DESCRIPTION OF PROCEDURE: The patient was brought to the operative suite and placed in supine position. After satisfactory administration of spinal anesthesia, the well-padded tourniquet was placed on the right proximal thigh. The right lower extremity was prepped and draped in the usual sterile fashion. Leg was exsanguinated. Tourniquet insufflated to 350 torr. A longitudinal incision was made beginning at the superior pole of the patella and extended distally to the tibia tuberosity, dissected sharply through skin subcutaneous tissue, and then full-thickness skin flaps were elevated medially and laterally. Hemostasis was obtained meticulously with electrocautery. A medial arthrotomy was made with a vastus snip. The medial capsule was elevated off the medial tibial plateau. The prepatellar fat pad, ACL, PCL, medial meniscus, and lateral meniscus were excised. A drill was entered in the center of the distal femur, intramedullary guide was placed, distal cutting block was pinned into place discussed with an oscillating saw. The femur was sized to a size 10, a size 10 cutting block was pinned into place. Anterior cuts, chamfer cuts, and posterior condylar cuts were made with an oscillating saw. The box cutting block was pinned into place. A box cut was made with a box osteotome and oscillating saw. Marginal osteophytes removed with rongeur. The posterior condyle osteophytes removed with curved osteotome and rongeur. Attention was then directed to the tibia. A drill was entered in the center of the tibia, intramedullary guide was placed. Alignment was checked with drop maryam, referencing off the anterior cortex of the tibia and the second ray of the foot, and taking 2 mm off the low side of the tibia, which in this case, was medially. The tibial cutting block was pinned into place. The articular surface of the tibial plateau was removed with an oscillating saw. The hard sclerotic bone medially was drilled to improve cement fixation. The tibia was sized to a size 9, a size 9 guide was used for the fin punch. The tibial trial, femoral trial, a 14 mm articular insert were placed, taken through range of motion and found to have excellent alignment, balancing, and range of motion. Attention was directed to the patella and 9 mm of the articular surface of the patella removed with an oscillating saw. Patella sized to size 35, a size 35 guide was used drill peg holes. The lateral facet was chamfered 30 to 45 degrees. Patella trial placed, taken through range of motion, found to have excellent patella tracking. All trials were then removed. The knee was copiously irrigated and dried, being certain all bone debris was removed. The tibial component, femoral component, and patellar component were cemented into place, excess cement being removed with a [place]. Once the cement had hardened, excess cement was again removed with an osteotome. The knee was again copiously irrigated and dried, being certain all bone and cement debris removed. The trial articular insert was removed. The knee was copiously infiltrated with Exparel, including the posterior capsule, anterior capsule, medial and lateral collateral ligaments, anterior musculature, and the subcutaneous tissue. The drain was placed exiting superior laterally and buried in the lateral gutter. The definitive 14 mm articular insert was locked into place. Knee was again taken through range of motion again, found have excellent alignment, balancing, range of motion, and patellar tracking. The knee was copiously irrigated and then also irrigated with lavage irrigation. The medial arthrotomy was then closed with 0 V- Loc suture, skin edge approximated with 2-0 Vicryl. Skin was closed with Prineo and a sterile dressing was applied. The patient tolerated the procedure well without complication. At the end of the procedure, all counts correct x2. The patient was transferred to the recovery room in stable condition. cc: Romario Muller MD
[2017-06-28] MEDS: TYLENOL PO SCH (16:48)
[2017-06-28] MEDS: KEFZOL 2 GM/D5W 2 GM/50 ML IVPB IV SCH (16:49)
[2017-06-28] MEDS: COLACE PO SCH (21:39)
[2017-06-28] MEDS: KEPPRA PO SCH (21:39)
[2017-06-28] MEDS: LYRICA PO SCH (21:40)
[2017-06-29] MEDS: ULTRAM PO SCH ×4 (00:47→18:19)
[2017-06-29] MEDS: TYLENOL PO SCH ×4 (00:47→18:19)
[2017-06-29] MEDS: KEFZOL 2 GM/D5W 2 GM/50 ML IVPB IV SCH (00:47)
[2017-06-29] MEDS: NS 1,000 ML IV SCH ×2 (00:48→05:04)
[2017-06-29 05:43] LABS: HEMATOCRIT 32.2 % (42.0-52.0); HEMOGLOBIN 10.9 g/dL (14.0-18.0)
[2017-06-29 05:55] LABS: AGAP 12; BUN 17 mg/dL (8-22); CHLORIDE 103 mmol/L (98-107); COSMO 279; POTASSIUM 4.3 mmol/L (3.5-5.1); SODIUM 138 mmol/L (136-145); TCO2 23 mmol/L (25-35)
--- NOTE | 2017-06-29 08:21 | PROGRESS NOTE ---
DATE: 06/29/2017 SUBJECTIVE: Mr. Albarran is a 56-year-old male, who is postoperative day 1 from a right total knee arthroplasty. He has no new complaints. OBJECTIVE: General: He is a well-developed, well-nourished male. He is alert, oriented, cooperative with examination. He is in no acute distress. Vital Signs: Stable. He is afebrile. LABORATORY DATA: His hemoglobin is 10.9. His hematocrit is 32.2. He had 50 mL of drainage from his Hemovac. He was ambulating well physical therapy. Yesterday, he walked 25 feet. Skin: His wound is clean, dry, intact without sign of infection. Extremities: His calf is soft. His right leg is neurovascularly intact. ASSESSMENT: Stable postoperative day 1 from a right total knee arthroplasty. PLAN: We will have him continue working on physical therapy. We will discontinue his drain today. He will likely go home tomorrow. Dictated by ERNESTINA Del Rio for Romario Muller MD cc: ERNESTINA Del Rio MD
[2017-06-29] MEDS: PERIDEX MT SCH ×2 (08:56→21:42)
[2017-06-29] MEDS: KEPPRA PO SCH ×2 (08:56→21:42)
[2017-06-29] MEDS: PEPCID PO SCH (08:57)
[2017-06-29] MEDS: ASPIRIN PO SCH (08:57)
[2017-06-29] MEDS: CELEBREX PO SCH ×2 (08:57→21:42)
[2017-06-29] MEDS: COLACE PO SCH ×2 (08:57→21:42)
[2017-06-29] MEDS: LYRICA PO SCH ×2 (09:00→21:42)
[2017-06-29] MEDS ORDERED: DECADRON IV ONE (09:00)
[2017-06-30] MEDS: TYLENOL PO SCH ×2 (00:57→07:07)
[2017-06-30] MEDS: ULTRAM PO SCH ×2 (00:58→07:07)
[2017-06-30 07:49] VITALS: BP 165/80
[2017-06-30] MEDS: COLACE PO SCH (08:28)
[2017-06-30] MEDS: LYRICA PO SCH (08:28)
[2017-06-30] MEDS: PERIDEX MT SCH (08:29)
[2017-06-30] MEDS: KEPPRA PO SCH (08:29)
[2017-06-30] MEDS: ASPIRIN PO SCH (08:29)
[2017-06-30] MEDS: CELEBREX PO SCH (08:29)
[2017-06-30] MEDS: PEPCID PO SCH (08:29)
--- NOTE | 2017-06-30 10:21 | DISCHARGE SUMMARY ---
ADMISSION DATE: 06/28/2017 DISCHARGE DATE: 06/30/2017 DISCHARGE DIAGNOSIS: Right knee degenerative joint disease, status post right total knee arthroplasty. DISCHARGE MEDICATIONS: See discharge medication list. DISPOSITION: The patient is discharged home with outpatient physical therapy. DISCHARGE INSTRUCTIONS: Instructions for total knee arthroplasty protocol, instructed to return to see Dr. Muller next . HOSPITAL COURSE: On the day of admission, the patient underwent a right total knee arthroplasty. Postoperative course was unremarkable. At discharge, he was afebrile, tolerating a regular diet, and ambulating well with physical therapy. Yesterday, he walked 250 feet. His hemoglobin was 10.9 and his hematocrit was 32.2. His wound is clean, dry, and intact without signs of infection. His calf is soft. His right leg is neurovascularly intact. He is discharged home in stable condition with instructions to follow up as described above. Dictated by ERNESTINA Del Rio for Romario Muller MD cc: ERNESTINA Del Rio MD
[2017-06-30 10:45] LABS: HEMATOCRIT 31.1 % (42.0-52.0); HEMOGLOBIN 10.4 g/dL (14.0-18.0)
== END 2017-06-30 11:16 | disposition home or self-care (01) ==
LOC: SURHOLD 04:26 → 4N 11:14
PROVIDERS: ADMIT Orthopaedic Surgery; ATTEND Orthopaedic Surgery